=== PATIENT | male | born 1945 | race Caucasian/White ===

== ENCOUNTER 2017-03-10 10:29 | Day surgery (SDC) | payer MEDICARE, OTHER ==
[~2017-03-10 10:29] MED LIST: BUPIVACAINE HCL 0.75% INJ/PF (7.5 MG/1 ML) 10 ML SDV OS PRN; KETOROLAC TROMETHAMINE 0.45% 4 DROP/0.4 ML DROPERETTE OS PRN
[2017-03-10] MEDS ORDERED: LIDOCAINE 1% INJ-PF (10 MG/ML) 30 ML SDV ONE (10:51)
[2017-03-10] MEDS ORDERED: PHENYLEPHRINE/KETOROLAC 1%-0.3% 4 ML VIAL ONE (10:51)
[2017-03-10] MEDS ORDERED: CHONDR SU A NA/HYALUR INTRAOC KIT (SURGICARE) ONE (10:51)
[2017-03-10] MEDS: TETRACAINE HCL 0.5% OPH SOLN 2 ML OS PRN ×3 (11:00→11:39)
[2017-03-10] MEDS: CYCLOPENTOLATE 0.2%/PHENYLEPHRINE 1% OPH SOLN 2 ML OS PRN ×3 (11:01→11:22)
[2017-03-10] MEDS: TROPICAMIDE 1% OPH SOLN 3 ML OS PRN ×3 (11:01→11:22)
[2017-03-10] MEDS: BESIFLOXACIN HCL 0.6% OPH SUSP 5 ML BOTTLE OS PRN ×3 (11:01→12:08)
[2017-03-10] MEDS ORDERED: ALBUTEROL SULFATE 0.083% NEB 2.5 MG/3 ML AMPUL NEB ONE (11:02)
[2017-03-10] MEDS ORDERED: MIDAZOLAM 2 MG/2 ML INJ ONE (11:24)
[2017-03-10] MEDS ORDERED: FENTANYL CITRATE INJ/PF 100 MCG/2 ML AMPUL ONE (11:25)
--- NOTE | 2017-03-11 08:32 | [facility] OPERATIVE REPORT E ---
[facility] Operative Report NAME: AMERICA COOK AGE: 71Y DATE OF SURGERY: 03/10/2017 ROOM: PREOPERATIVE DIAGNOSIS: CATARACT, LEFT EYE. POSTOPERATIVE DIAGNOSIS: CATARACT, LEFT EYE. OPERATION: Cataract extraction with intraocular lens implant of the left eye. SURGEON: RAUL SAMUEL M.D. ANESTHESIA: Topical. PROCEDURE: After obtaining appropriate consent, the patient's left eye was prepped and draped in sterile fashion as well as the surgeon in a sterile manner and cataract surgery was started. First, a paracentesis blade was used to make a small side-port incision. Viscoelastic was used to inflate the anterior chamber. Next, a 2.4 mm incision was made with the paracentesis blade. A continuous capsulorrhexis incision was made using a cystotome and Utrata forceps. Following this, hydrodissection was carried out to make the lens fully loose and mobile, and it was rotated 90 degrees. Following this, a vfqydd-rxc-akcjewx technique was used to phacoemulsify the lens with a CDE of 8.40. The remaining cortex was removed with irrigation/aspiration. Provisc was instilled into the capsular bag to inflate the bag. A SN60WF, 11.0 diopter lens was placed. The remaining viscoelastic material was removed with irrigation/aspiration. Following this, a 10-0 nylon suture was used to close the incision, and it was found to be watertight. Vigamox was instilled in the eye and a protective shield was placed over the eye. The patient returned to the postoperative recovery in stable condition. DICTATING PHYSICIAN: RAUL SAMUEL M.D. [id number] Y#: [id number] ID: [id number] JOB#: [id number] ACCT: [id number] cc:RAUL SAMUEL M.D. >
--- NOTE | 2017-03-11 08:43 | [facility] DISCHARGE SUMMARY E ---
[facility] Discharge Summary NAME: AMERICA COOK AGE: 71Y ADMITTED: 03/10/2017 DISCHARGED: 03/10/2017 HISTORY: This is a 71-year-old male who underwent cataract extraction of the left eye. DIAGNOSIS: Cataract, left eye. HOSPITAL COURSE: He underwent surgery because he had difficulty driving at night secondary to glare from headlights. DISCHARGE INSTRUCTIONS: He should be on a regular diet. No bending at the waist, no heavy lifting. He should use his Besivance, Ilevro, and Durezol at 3 p.m. and 8 p.m. and sleep with a rigid shield, and I will see him for his one day postoperative tomorrow. DICTATING PHYSICIAN: RAUL SAMUEL M.D. [id number] Y#: 2011 [id number] ID: [id number] JOB#: [id number] ACCT: [id number] cc:RAUL SAMUEL M.D. >
== END 2017-03-10 12:52 | disposition home or self-care (01) ==
LOC: SC 10:29
PROVIDERS: ATTEND Internal Medicine
PROC: 08RK3JZ Replacement of Left Lens with Synthetic Substitute, Percutaneous Approach (ICD-10-PCS; principal; 2017-03-10 12:00)
DX: H25.813 Combined forms of age-related cataract, bilateral (principal); H57.03 Miosis; J44.9 Chronic obstructive pulmonary disease, unspecified; I10 Essential (primary) hypertension; E78.00 Pure hypercholesterolemia, unspecified; G47.30 Sleep apnea, unspecified; I49.9 Cardiac arrhythmia, unspecified; Z87.891 Personal history of nicotine dependence; Z85.01 Personal history of malignant neoplasm of esophagus; Z85.118 Personal history of other malignant neoplasm of bronchus and lung; Z99.81 Dependence on supplemental oxygen; Z88.1 Allergy status to other antibiotic agents; Z79.51 Long term (current) use of inhaled steroids; Z79.82 Long term (current) use of aspirin; Z79.899 Other long term (current) drug therapy
CPT/HCPCS: 66984; V2632; J2250; J3490 ×2; A9270 ×2; J3010; C9447; 142

== ENCOUNTER 2017-03-31 11:10 | Day surgery (SDC) | payer MEDICARE, OTHER ==
[~2017-03-31 11:10] MED LIST changes: -BUPIVACAINE HCL 0.75% INJ/PF (7.5 MG/1 ML) 10 ML SDV OS PRN; +CHONDR SU A NA/HYALUR INTRAOC KIT (SURGICARE) ONE; +KETOROLAC TROMETHAMINE 0.45% 4 DROP/0.4 ML DROPERETTE OD PRN; -KETOROLAC TROMETHAMINE 0.45% 4 DROP/0.4 ML DROPERETTE OS PRN; +LIDOCAINE 1% INJ-PF (10 MG/ML) 30 ML SDV ONE; +PHENYLEPHRINE/KETOROLAC 1%-0.3% 4 ML VIAL ONE
[2017-03-31] MEDS: CYCLOPENTOLATE 0.2%/PHENYLEPHRINE 1% OPH SOLN 2 ML OD PRN ×3 (11:33→11:54)
[2017-03-31] MEDS: TETRACAINE HCL 0.5% OPH SOLN 2 ML OD PRN ×3 (11:33→12:10)
[2017-03-31] MEDS: TROPICAMIDE 1% OPH SOLN 3 ML OD PRN ×3 (11:33→11:54)
[2017-03-31] MEDS: BESIFLOXACIN HCL 0.6% OPH SUSP 5 ML BOTTLE OD PRN ×4 (11:34→12:41)
[2017-03-31] MEDS ORDERED: FENTANYL CITRATE INJ/PF 250 MCG/5 ML AMPULE ONE (11:50)
[2017-03-31] MEDS ORDERED: MIDAZOLAM 2 MG/2 ML INJ ONE (11:50)
[2017-03-31] MEDS ORDERED: FENTANYL CITRATE INJ/PF 100 MCG/2 ML AMPUL ONE (11:51)
--- NOTE | 2017-03-31 19:08 | [facility] DISCHARGE SUMMARY E ---
[facility] Discharge Summary NAME: AMERICA COOK AGE: 71Y ADMITTED: 03/31/2017 DISCHARGED: 03/31/2017 HOSPITAL COURSE: This is a 71-year-old male who underwent cataract extraction of the right eye. DIAGNOSIS: CATARACT, RIGHT EYE. He underwent surgery because he was having difficulty reading up close and having an imbalance between both eyes. DISCHARGE INSTRUCTIONS: He is to be on a regular diet. No bending at his waist, no heavy lifting. He should use Besivance, Ilevro, and Durezol at 3 p.m. and 8 p.m. and sleep with a rigid shield. I will see him for his 1 day postoperative tomorrow. DICTATING PHYSICIAN: RAUL SAMUEL M.D. [id number] PHY#: [id number] ID: [id number] JOB#: [id number] ACCT: [id number] cc:RAUL SAMUEL M.D. >
--- NOTE | 2017-03-31 19:08 | [facility] OPERATIVE REPORT E ---
[facility] Operative Report NAME: AMERICA COOK AGE: 71Y DATE OF SURGERY: 03/31/2017 ROOM: PREOPERATIVE DIAGNOSIS: CATARACT, RIGHT EYE. POSTOPERATIVE DIAGNOSIS: CATARACT, RIGHT EYE. OPERATION: Cataract extraction with intraocular lens implant of the right eye. SURGEON: RAUL SAMUEL M.D. ANESTHESIA: Topical. PROCEDURE: After obtaining appropriate consent, the patient's @ eye was prepped and draped in sterile fashion as well as the surgeon in a sterile manner and cataract surgery was started. First a paracentesis blade was used to make a small side-port incision. Viscoelastic was used to inflate the anterior chamber. Next a 2.4 mm incision was made with the paracentesis blade. A continuous capsulorrhexis incision was made using a cystotome and Utrata forceps. Following this hydrodissection was carried out to make the lens fully loose and mobile and it was rotated 90 degrees. Following this, a fegnxp-hae-hoqalkl technique was used to phacoemulsify the lens with a CDE of 6.30. The remaining cortex was removed with irrigation/aspiration. Provisc was instilled into the capsular bag to inflate the bag. A SN60WF, 11.0 diopter lens was placed. The remaining viscoelastic material was removed with irrigation/aspiration. Following this, a 10-0 nylon suture was used to close the incision and it was found to be watertight. Vigamox was instilled in the eye and a protective shield was placed over the eye. The patient returned to the postoperative recovery in stable condition. DICTATING PHYSICIAN: RAUL SAMUEL M.D. [id number] PHY#: [id number] ID: [id number] JOB#: [id number] ACCT: [id number] cc:RAUL SAMUEL M.D. >
== END 2017-03-31 13:28 | disposition home or self-care (01) ==
LOC: SC 11:10
PROVIDERS: ATTEND Internal Medicine
PROC: 08RJ3JZ Replacement of Right Lens with Synthetic Substitute, Percutaneous Approach (ICD-10-PCS; principal; 2017-03-31 12:30)
DX: H25.811 Combined forms of age-related cataract, right eye (principal); H57.03 Miosis; J44.9 Chronic obstructive pulmonary disease, unspecified; I10 Essential (primary) hypertension; K21.9 Gastro-esophageal reflux disease without esophagitis; K44.9 Diaphragmatic hernia without obstruction or gangrene; I49.9 Cardiac arrhythmia, unspecified; G47.30 Sleep apnea, unspecified; Z79.51 Long term (current) use of inhaled steroids; I25.2 Old myocardial infarction; Z79.82 Long term (current) use of aspirin; Z85.118 Personal history of other malignant neoplasm of bronchus and lung
CPT/HCPCS: 66984; V2632; J2250; J3490 ×2; A9270; J3010; C9447; 142

== ENCOUNTER → 2017-05-31 | Outpatient (CLI) | payer MEDICARE, OTHER ==
--- NOTE | 2017-05-31 11:00 | RADIOLOGY REPORT (SQ) ---
EXAM DESCRIPTION: CHEST PA/LATERAL COMPLETED DATE/TIME: 05/31/2017 9:07 am REASON FOR STUDY: MALIG NEOPLASM OF ESOHAGUS,UPPER LOBE,RT BRONCHUS COMPARISON: PET-CT 09/22/2014, 07/13/2015, 04/09/2016 Chest films 03/08/2016, 03/10/2016, 03/29/2016 EXAM PARAMETERS: NUMBER OF VIEWS: two views TECHNIQUE: Digital Frontal and Lateral radiographic views of the chest acquired. RADIATION DOSE: NA LIMITATIONS: none FINDINGS: LUNGS AND PLEURA: No acute infiltrates. Lungs are hyperinflated and hyperlucent from obst ructive disease. No pleural effusion. No pneumothorax. Old calcified granuloma right upper lobe. MEDIASTINUM AND HILAR STRUCTURES: Post thoracotomy and esophageal pull-through. HEART AND VASCULAR STRUCTURES: Heart normal size. No evidence for failure. BONES: No acute findings. HARDWARE: None in the chest. OTHER: No other significant finding. IMPRESSION: Obstructive lung disease. No acute findings TECHNICAL DOCUMENTATION: JOB ID: [id number] 0005 [employer]- All Rights Reserved
== END ==
LOC: OD 08:52
PROVIDERS: ATTEND Internal Medicine Medical Oncology
DX: C15.9 Malignant neoplasm of esophagus, unspecified (principal); C34.11 Malignant neoplasm of upper lobe, right bronchus or lung
CPT/HCPCS: 71046

== ENCOUNTER 2017-07-13 08:47 | Day surgery (SDC) | payer MEDICARE, OTHER ==
[2017-07-13 09:32] LABS: HEMATOCRIT 39.1 % (37.9-51.0); HEMOGLOBIN 13.3 g/dL (13.5-17.0); MEAN CORPUSCULAR HEMOGLOBIN 31.6 pg (27.0-33.4); MEAN CORPUSCULAR VOLUME 93 fl (80-97); PLATELET COUNT 199 10^3/uL (150-450); RED BLOOD COUNT 4.21 10^6/uL (4.35-5.55); RED CELL DISTRIBUTION WIDTH 14.7 % (11.5-14.0); WHITE BLOOD COUNT 7.1 10^3/uL (4.0-10.5)
[2017-07-13 09:37] LABS: INTERNATIONAL RATION (INR) 0.92
[2017-07-13 09:38] LABS: PARTIAL THROMBOPLASTIN TIME 30.6 SEC (23.5-35.8)
[2017-07-13 09:45] LABS: BLOOD UREA NITROGEN 14 mg/dL (7-20)
[2017-07-13] MEDS ORDERED: LIDOCAINE 1% INJ-PF (10 MG/ML) 30 ML SDV ONE (11:29)
[2017-07-13] MEDS ORDERED: MIDAZOLAM 2 MG/2 ML INJ ONE (11:31)
[2017-07-13] MEDS ORDERED: FENTANYL CITRATE INJ/PF 100 MCG/2 ML AMPUL ONE (11:32)
--- NOTE | 2017-07-13 13:39 | RADIOLOGY REPORT (SQ) ---
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 TECHNIQUE: CT guided biopsy of the left retroperitoneal adenopathy performed with conscious sedation . CT Fluoroscopy Time: 4.[address] scanners at this facility use dose modulation, iterative reconstruction, and/or weight based d osing when appropriate to reduce radiation dose to as low as reasonably achievable (ALARA). [facility]: Dose Right [facility]: CareDose [facility]: Dose Right [facility]: Teradose 4D [facility]: [employer] RADIATION DOSE: 72 mGy. FINDINGS: The procedure was discussed with the patient and the patient agreed to the procedure. Prio r to the procedure, a time out was performed to verify the patient's identity and planned procedure. IV sedation was administered and physician direction by the registered nurse using 2 milligrams of Ve rsed and 100 micrograms of fentanyl. Physiologic monitoring was provided before, during, and after se dation. The total sedation time was 40 minutes. Documentation face to face time, the performing proceduralist, spent monitoring the patient: [address] scanning was performed to localize the percutaneous site for the biopsy approach. After sterile skin prep and local lidocaine for skin and deep tissue anesthesia, a coaxial biopsy nee dle was used to obtain multiple cores of tissue from the left retroperitoneal lymph nodes just dorsal to the left renal vein. The biopsy tissue was submitted to the lab in formalin. There were no immed iate complications. Pathology is pending at the time of dictation. IMPRESSION: CT GUIDED BIOPSY OF THE LEFT RETROPERITONEAL ADENOPATHY PERFORMED WITHOUT IMMEDIATE COMP LICATION. PATHOLOGY PENDING. IV CONSCIOUS SEDATION COMMENT: Quality ID 145: Final reports for procedures using fluoroscopy that document radiation exp osure indices, or exposure time and number of fluorographic images (if radiation exposure indices are not available) Patient medication list reviewed: Yes- Quality ID# [id number]:Eligible professional attests to documenting i n the medical record they obtained, updated, or reviewed the patient's current medications.. TECHNICAL DOCUMENTATION: JOB ID: [id number] Quality ID# [id number]: Final reports with documentation of one or more dose reduction techniques (e.g., Aut omated exposure control, adjustment of the mA and/or kV according to patient size, use of iterative r econstruction technique) 2010 [employer]- All Rights Reserved Reading location - IP/workstation name: [email or web address]
--- NOTE | 2017-07-13 13:39 | RADIOLOGY REPORT (SQ) ---
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 TECHNIQUE: CT guided biopsy of the left retroperitoneal adenopathy performed with conscious sedation . CT Fluoroscopy Time: 4.[address] scanners at this facility use dose modulation, iterative reconstruction, and/or weight based d osing when appropriate to reduce radiation dose to as low as reasonably achievable (ALARA). [facility]: Dose Right [facility]: CareDose [facility]: Dose Right [facility]: Teradose 4D [facility]: [employer] RADIATION DOSE: 72 mGy. FINDINGS: The procedure was discussed with the patient and the patient agreed to the procedure. Prio r to the procedure, a time out was performed to verify the patient's identity and planned procedure. IV sedation was administered and physician direction by the registered nurse using 2 milligrams of Ve rsed and 100 micrograms of fentanyl. Physiologic monitoring was provided before, during, and after se dation. The total sedation time was 40 minutes. Documentation face to face time, the performing proceduralist, spent monitoring the patient: [address] scanning was performed to localize the percutaneous site for the biopsy approach. After sterile skin prep and local lidocaine for skin and deep tissue anesthesia, a coaxial biopsy nee dle was used to obtain multiple cores of tissue from the left retroperitoneal lymph nodes just dorsal to the left renal vein. The biopsy tissue was submitted to the lab in formalin. There were no immed iate complications. Pathology is pending at the time of dictation. IMPRESSION: CT GUIDED BIOPSY OF THE LEFT RETROPERITONEAL ADENOPATHY PERFORMED WITHOUT IMMEDIATE COMP LICATION. PATHOLOGY PENDING. IV CONSCIOUS SEDATION COMMENT: Quality ID 145: Final reports for procedures using fluoroscopy that document radiation exp osure indices, or exposure time and number of fluorographic images (if radiation exposure indices are not available) Patient medication list reviewed: Yes- Quality ID# [id number]:Eligible professional attests to documenting i n the medical record they obtained, updated, or reviewed the patient's current medications.. TECHNICAL DOCUMENTATION: JOB ID: [id number] Quality ID# [id number]: Final reports with documentation of one or more dose reduction techniques (e.g., Aut omated exposure control, adjustment of the mA and/or kV according to patient size, use of iterative r econstruction technique) 2010 [employer]- All Rights Reserved Reading location - IP/workstation name: [email or web address]
[2017-07-13 14:25] VITALS: BP 109/68
== END 2017-07-13 14:15 | disposition home or self-care (01) ==
LOC: RAD 08:47
PROVIDERS: ATTEND Internal Medicine Medical Oncology
PROC: 07BD3ZX Excision of Aortic Lymphatic, Percutaneous Approach, Diagnostic (ICD-10-PCS; principal; 2017-07-13)
DX: C77.2 Secondary and unspecified malignant neoplasm of intra-abdominal lymph nodes (principal); C34.11 Malignant neoplasm of upper lobe, right bronchus or lung; Z79.01 Long term (current) use of anticoagulants
CPT/HCPCS: 36415; 84520; 82565; 85027; 85610; 85730; 88342 ×2; 88341 ×2; 88305 ×2; 77012; 38505; J2250; J3010; J3490

== ENCOUNTER 2017-09-23 21:49 | Inpatient (IN) | payer MEDICARE, OTHER ==
[2017-09-23] MEDS ORDERED: IPRATROPIUM/ALBUTEROL 0.5-2.5 MG/3 ML AMPUL NEB ONE (22:36)
[2017-09-23] MEDS ORDERED: LORAZEPAM INJ 2 MG/1 ML VIAL IV ONE (22:36)
[2017-09-23] MEDS ORDERED: METHYLPREDNISOLONE INJ 125 MG/2 ML SDV IV ONE (22:39)
--- NOTE | 2017-09-23 22:39 | ER Document Report ---
ED General - General Chief Complaint: Shortness Of Breath Stated Complaint: DIFFICULTY BREATHING Time Seen by Provider: 09/23/17 22:22 Cannot obtain history due to: Unstable vital signs Notes: Patient is a 71 year old with medical history as recorded including active chemotherapy treatment for esophageal and lung cancer as well as COPD with a baseline oxygen dependence of 2 L of nasal cannula who presents in respiratory distress. He and his family report that for the past 12 hours he has had progressively worsening shortness of breath and difficulty taking a deep breath. Patient denies a history of similar symptoms in the past. He reports he tried albuterol inhalers at the home with no improvement. Nothing worsens his symptoms. He states that they came on relatively abruptly and have gotten progressively worse since that time. He denies any associated chest pain, nausea, vomiting, hemoptysis or fever. History is otherwise limited secondary to the patient's respiratory distress TRAVEL OUTSIDE OF THE [place] IN LAST 30 DAYS: No - Related Data Allergies/Adverse Reactions: bee venom protein (honey bee) Allergy (Verified 07/13/17 09:10) tetracycline [Tetracycline] Allergy (Verified 07/13/17 09:10) resp distress Past Medical History - General Information source: Patient, Relative - Social History Smoking Status: Former Smoker Frequency of alcohol use: None Drug Abuse: None Lives with: Family Family History: Reviewed & Not Pertinent - Past Medical History Cardiac Medical History: Reports: Hx Heart Attack - 2016, Hx Hypercholesterolemia - meds x 8 years, Hx Hypertension Denies: Hx Atrial Fibrillation, Hx Congestive Heart Failure, Hx Coronary Artery Disease, Hx Peripheral Vascular Disease, Hx Pulmonary Embolism, Hx Heart Murmur Pulmonary Medical History: Reports: Hx Asthma, Hx Bronchitis - chronic, Hx COPD , Hx Pneumonia - hospitalized after 2nd episode 2010, Hx Sleep Apnea - CPAP Qhs Denies: Hx Respiratory Failure, Hx Tuberculosis Neurological Medical History: Denies: Hx Cerebrovascular Accident, Hx Seizures Renal/ Medical History: Denies: Hx Benign Prostatic Hyperplasia, Hx End Stage Renal Disease, Hx Kidney Stones, Hx Peritoneal Dialysis Malignancy Medical History: Denies Hx Leukemia, Denies Hx Lung Cancer GI Medical History: Reports: Hx Gastroesophageal Reflux Disease - Nexium daily, Hx Hiatal Hernia. Denies: Hx Crohn's Disease, Hx Hepatitis, Hx Irritable Bowel , Hx Liver Failure, Hx Pancreatitis, Hx Ulcer Musculoskeltal Medical History: Reports Hx Arthritis, Denies Hx Fibromyalgia, Denies Hx Muscular Dystrophy Traumatic Medical History: Reports: Hx Fractures - RT tibia 2002, no surgical intervention Infectious Medical History: Denies: Hx Hepatitis, Hx HIV Past Surgical History: Reports: Hx Herniorrhaphy - [place] fundiplication? 1986. Denies: Hx Appendectomy, Hx Bowel Surgery, Hx Cholecystectomy, Hx Colostomy, Hx Coronary Artery Bypass Graft, Hx Gastric Bypass Surgery, Hx Open Heart Surgery, Hx Pacemaker, Hx Tonsillectomy - Immunizations Hx Pneumococcal Vaccination: 05/16/10 Review of Systems - Review of Systems Notes: Constitutional: Negative for fever. HENT: Negative for sore throat. Eyes: Negative for visual changes. Cardiovascular: Negative for chest pain. Respiratory: Positive for shortness of breath. Gastrointestinal: Negative for abdominal pain, vomiting or diarrhea. Genitourinary: Negative for dysuria. Musculoskeletal: Negative for back pain. Skin: Negative for rash. Neurological: Negative for headaches, weakness or numbness. 10 point ROS negative except as marked above and in HPI. Physical Exam - Vital signs Vitals: Temp Pulse Resp BP Pulse Ox 98.7 F 107 H 26 H 113/66 97 09/23/17 21:57 09/23/17 21:57 09/23/17 21:57 09/23/17 21:57 09/23/17 21:57 Interpretation: Tachycardic, Tachypneic Notes: PHYSICAL EXAMINATION: GENERAL: Appears uncomfortable, moderate respiratory distress HEAD: Atraumatic, normocephalic. EYES: Pupils equal round and reactive to light, extraocular movements intact, sclera anicteric, conjunctiva are normal. ENT: nares patent, oropharynx clear without exudates. Moderately dry mucous membranes. NECK: Normal range of motion, supple without lymphadenopathy LUNGS: Tachypneic with a respiratory rate of 36 breaths per minute. Poor air movement throughout but no overt wheezes, scattered rales. HEART: Regular tachycardia without murmurs ABDOMEN: Soft, nontender, normoactive bowel sounds. No guarding, no rebound. No masses appreciated. EXTREMITIES: Normal range of motion, no pitting or edema. No cyanosis. NEUROLOGICAL: No focal neurological deficits. Moves all extremities spontaneously and on command. PSYCH: Normal mood, normal affect. SKIN: Warm, Dry, normal turgor, no rashes or lesions noted. Course - Re-evaluation Re-evalutation: 09/23/17 22:37 Patient presents in acute respiratory distress, states that is been ongoing for the past 12 hours. He is breathing 32 times per minute the time of my assessment although is saturating 98% on 2 L by nasal cannula which he uses at baseline. He has globally diminished air movement in all lung morris although I do not appreciate any wheezes. There are notable rales on exam. Patient has difficulty speaking in complete sentences. He denies a history of such severe symptoms in the past and his notes that albuterol inhalers at home did nothing to treat his symptoms. I am skeptical that this is an obstructive lung process given the absence of wheezing on exam and his clinical history. Additional diagnostic considerations include a spontaneous pneumothorax given his history of lung malignancy and a partial right lobectomy per the 's report, a large pleural effusion, or possibly an acute pulmonary embolus. Will obtain a stat portable chest x-ray, obtain labs, and proceed with a CTA of the chest thereafter. Will proceed directly to CT as opposed to d-dimer as the patient is extremely high risk given his tachycardia, active chemotherapy for malignancy status, and severe dyspnea on exam. His well score is 6. - Vital Signs Vital signs: Temp Pulse Resp BP Pulse Ox 98.7 F 107 H 29 H 120/77 100 09/23/17 21:57 09/23/17 21:57 09/24/17 00:34 09/24/17 00:01 09/24/17 00:34 - Laboratory Result Diagrams: 09/23/17 22:32 09/23/17 22:32 Laboratory results interpreted by me: 09/23/17 09/23/17 22:32 22:32 WBC 52.2 H* RBC 3.99 L Hgb 12.3 L Hct 36.5 L RDW 16.1 H Seg Neuts % (Manual) 97 H Lymphocytes % (Manual) 2 L Monocytes % (Manual) 1 L Abs Neuts (Manual) 50.6 H BUN 27 H Glucose 131 H - Diagnostic Test Radiology reviewed: Reports reviewed - EKG Interpretation by Me Additional EKG results interpreted by me: 09/24/17 03:06 Sinus rhythm. Rate 97. No ST elevations or depressions. PVCs. QTC 463. Critical Care Note - Critical Care Note Total time excluding time spent on procedures (mins): 35 Comments: Critical care time spent obtaining history from patient or surrogate, discussions with consultants, development of treatment plan with patient or surrogate, evaluation of patient's response to treatment, examination of patient , ordering and performing treatments and interventions, ordering and review of laboratory studies, re-evaluation of patient's condition, ordering and review of radiographic studies and review of old charts Discharge - Discharge Clinical Impression: Shortness of breath, Respiratory distress Leukocytosis Qualifiers: Leukocytosis type: unspecified Qualified Code(s): D72.829 - Elevated white blood cell count, unspecified Condition: Fair Disposition: ADMITTED INPATIENT Admitting Provider: Hospitalist Unit Admitted: Telemetry
[2017-09-23 22:47] LABS: VENOUS BLOOD BASE EXCESS 0.2 mmol/L; VENOUS BLOOD HCO3 24.5 mmol/L (20-32); VENOUS BLOOD PCO2 38.8 mmHg (35-63); VENOUS BLOOD PH 7.42 (7.30-7.42)
[2017-09-23 22:59] LABS: HEMATOCRIT 36.5 % (37.9-51.0); HEMOGLOBIN 12.3 g/dL (13.5-17.0); MEAN CORPUSCULAR HEMOGLOBIN 30.9 pg (27.0-33.4); MEAN CORPUSCULAR HGB CONC 33.8 g/dL (32.0-36.0); MEAN CORPUSCULAR VOLUME 92 fl (80-97); PLATELET COUNT 296 10^3/uL (150-450); RED BLOOD COUNT 3.99 10^6/uL (4.35-5.55); RED CELL DISTRIBUTION WIDTH 16.1 % (11.5-14.0)
[2017-09-23 23:05] LABS: ANION GAP 12 (5-19); BLOOD UREA NITROGEN 27 mg/dL (7-20); CALCIUM 9.2 mg/dL (8.4-10.2); CARBON DIOXIDE 27 mmol/L (22-30); CHLORIDE 101 mmol/L (98-107); GLUCOSE 131 mg/dL (75-110); POTASSIUM 4.4 mmol/L (3.6-5.0); SODIUM 140.1 mmol/L (137-145); WHITE BLOOD COUNT 52.2 10^3/uL (4.0-10.5)
[2017-09-23] MEDS ORDERED: PIPERACILLIN/TAZOBACTAM 3.375 GM VIAL IV ONE (23:07)
[2017-09-23] MEDS ORDERED: NORMAL SALINE 1000 ML 1,000 ML IV ONE (23:07)
[2017-09-23 23:14] LABS: NT PRO BNP 129 pg/mL (5-900)
[2017-09-23 23:15] LABS: ABSOLUTE MONOCYTES # (MANUAL) 0.5 10^3/uL (0.1-1.4); ABSOLUTE NEUTROPHILS# (MANUAL) 50.6 10^3/uL (1.7-8.2); BASOPHILS % (MANUAL) 0 % (0-2); EOSINOPHILS % (MANUAL) 0 % (0-6); LYMPHOCYTES % (MANUAL) 2 % (13-45); MONOCYTES % (MANUAL) 1 % (3-13); SEGMENTED NEUTROPHILS % (MAN) 97 % (42-78); TOTAL CELLS COUNTED 100
[2017-09-23 23:17] LABS: ANISOCYTOSIS 1+; PLATELET COMMENT ADEQUATE; TOXIC GRANULATION SLIGHT
[2017-09-23 23:19] LABS: TROPONIN I < 0.012 ng/mL
--- NOTE | 2017-09-24 00:54 | RADIOLOGY REPORT (SQ) ---
EXAM DESCRIPTION: CT CHEST ANGIOGRAPHY WITHOUT THEN WITH IV CONTRAST CLINICAL HISTORY: 71 years Male, sob, hx cancer, tachycardia Comparison: CT retroperitoneum, report only, 07/05/2017. Technique: IV contrast. Coronal and sagittal reformat. 3d reconstruction. This exam was performed according to our departmental dose-optimization program, which includes automated exposure control, adjustment of the mA and/or kV according to patient size and/or use of iterative reconstruction technique.[facility]: Dose Right [facility]: CareDose [facility]: Dose Right [facility]: Teradose 4D [facility]: Smart [employer] LIMITATIONS: None. Findings: No pulmonary embolus. No right ventricular strain. Ossified granuloma right upper lobe, severe centrilobular emphysema, small scar of the lateral right mid hemithorax, esophageal transposition, multilevel mild-moderate anterior thoracic vertebral compression deformities. Moderate exaggerated kyphotic curvature. Moderate mediastinal lymphadenopathy. Small left basilar atelectasis or scar. Moderate lymphadenopathy of the upper central abdomen measuring up to 1.8 cm each consistent with prior CT report, 07/05/2017. Partially imaged aortic graft. Cholecystectomy clips.Inferior neck, axillae, airway, heart, vasculature, upper abdomen, and musculoskeleton appear otherwise unremarkable. IMPRESSION: 1. Moderate mediastinal and upper abdominal lymphadenopathy. 2. No acute cardiopulmonary findings. No pulmonary embolus. Prior surgery.
[2017-09-24] MEDS ORDERED: IPRATROPIUM/ALBUTEROL 0.5-2.5 MG/3 ML AMPUL NEB PRN (01:24)
[2017-09-24] MEDS ORDERED: MAG HYDROX/AL HYDROX/SIMETH SUSP 30 ML UDCUP PO PRN (01:24)
[2017-09-24] MEDS ORDERED: ACETAMINOPHEN 325 MG TABLET PO PRN (01:24)
[2017-09-24] MEDS ORDERED: CHLORPHENIRAMINE MALEATE 4 MG TABLET PO ONE (01:24)
[2017-09-24] MEDS ORDERED: KETOROLAC TROMETHAMINE INJ/PF 30 MG/1 ML SDV IV PRN (01:24)
[2017-09-24] MEDS ORDERED: HYDROCODONE BIT/HOMATROPINE SYRUP 5 ML UDCUP PO PRN (01:24)
[2017-09-24] MEDS ORDERED: LACTULOSE SYRUP 20 GM/30 ML UDCUP PO ONE (01:24)
[2017-09-24] MEDS ORDERED: HYDRALAZINE HCL INJ/PF 20 MG/1 ML SDV IV PRN (01:24)
[2017-09-24] MEDS ORDERED: ONDANSETRON HCL INJ/PF 4 MG/2 ML SDV IV PRN (01:24)
[2017-09-24] MEDS ORDERED: BESIFLOXACIN HCL 0.6% OPH SUSP 5 ML BOTTLE OP SCH (01:30)
[2017-09-24] MEDS ORDERED: NORMAL SALINE 1000 ML 1,000 ML IV PRN (01:30)
[2017-09-24] MEDS ORDERED: (PENDING PHARMACY ID) (Difluprednate [Durezol] 1 DROP) OP SCH (01:30)
--- NOTE | 2017-09-24 02:00 | RADIOLOGY REPORT (SQ) ---
EXAM DESCRIPTION: XR CHEST 1 VIEW CLINICAL HISTORY: 71 years Male, sob, hx cancer, tachycardia COMPARISON: 03.29.16 NUMBER OF VIEWS/TECHNIQUE: 1/AP FINDINGS: Emphysematous hyperinflation, small chronic right lateral mid hemithoracic scar, calcified granuloma the right upper hemithorax, right subclavian central line tip at the SVC, right medial hemithoracic opacity consistent with history of esophagectomy and gastric pull-through. Stable. IMPRESSION: No acute cardiopulmonary findings.
[2017-09-24 02:29] LABS: CREATINE KINASE MB 0.57 ng/mL (<4.55)
[2017-09-24 02:30] LABS: TROPONIN I < 0.012 ng/mL
[2017-09-24] MEDS: IPRATROPIUM/ALBUTEROL 0.5-2.5 MG/3 ML AMPUL NEB SCH ×4 (02:49→19:59)
[2017-09-24] MEDS ORDERED: PIPERACILLIN/TAZOBACTAM 4.5 GM VIAL IV ONE (03:44)
[2017-09-24] MEDS ORDERED: CHLORPHENIRAMINE MALEATE 4 MG TABLET ONE (03:44)
[2017-09-24] MEDS: PIPERACILLIN SODIUM/TAZOBACTAM 4.5 GM in NORMAL SALINE 100 ML IV SCH ×3 (05:28→18:03)
[2017-09-24] MEDS: HEPARIN SOD (PORCINE) 5,000 UNIT/ML 1 ML SYRINGE SUBCUT SCH ×3 (05:30→21:46)
--- NOTE | 2017-09-24 05:42 | RADIOLOGY REPORT (SQ) ---
EXAM DESCRIPTION: XR ABDOMEN 2 VIEWS SUPINE ERECT CLINICAL HISTORY: 71 years Male, rule out obstruction COMPARISON: CT, 2.28.18 NUMBER OF VIEWS/TECHNIQUE: 3 LIMITATIONS: None. FINDINGS: Intestinal gas pattern is within normal limits. No suspicious calcification. Grossly intact skeletal structures. No acute cardiopulmonary findings. Right upper abdominal clips. Aortobiiliac graft. Residual contrast at the urinary bladder. IMPRESSION: No acute findings.
--- NOTE | 2017-09-24 05:55 | PDOC H&P ---
History of Present Illness Admission Date/PCP: 09/24/17 01:32 NING CRUZ MD Patient complains of: Shortness of breath History of Present Illness: AMERICA COOK is a 71 year old male with history of active lung and esophageal cancer with metastases on chemotherapy, COPD with chronic bronchitis and home oxygen dependence. Patient presents with 12 hours of shortness of breath and tachypnea. Denies anxiety, headache, rhinorrhea, sore throat or acid reflux. In the emergency room he is found to have no fever, leukocytosis of 52,000, respiratory rate of 30-40 and oxygen saturations at baseline of 99% on 2 L. CTA of the chest is negative for pulmonary emboli, BNP in normal range. He is referred to the hospitalist for admission. He denies previous episode. He is unaware of his chemotherapeutic regimen. Past Medical History Cardiac Medical History: Reports: Myocardial Infarction - 2016, Hyperlipidema - meds x 8 years, Hypertension Denies: Atrial Fibrillation, Congestive Heart Failure, Coronary Artery Disease, Peripheral Vascular Disease, Pulmonary Embolism, Heart Murmur Pulmonary Medical History: Reports: Asthma, Bronchitis - chronic, Chronic Obstructive Pulmonary Disease (COPD), Pneumonia - hospitalized after 2nd episode 2010, Sleep Apnea - CPAP Qhs Denies: Respiratory Failure, Tuberculosis Neurological Medical History: Denies: Seizures Renal/ Medical History: Denies: End Stage Renal Disease Malignancy Medical History: Denies: Leukemia, Lung Cancer GI Medical History: Reports: Gastroesophageal Reflux Disease - Nexium daily, Hiatal Hernia Denies: Crohn's Disease, Hepatitis Musculoskeltal Medical History: Reports: Arthritis Denies: Fibromyalgia Psychiatric Medical History: Denies: Depression Hematology: Denies: Anemia, Hemophilia, Sickle Cell Disease Infectious Medical History: Denies: HIV Past Surgical History Past Surgical History: Reports: Herniorrhaphy - [place] fundiplication? 1986 Denies: Appendectomy, Cholecystectomy, Colostomy, Coronary Artery Bypass Graft, Gastric Bypass Surgery, Pacemaker, Tonsillectomy Social History Information Source: Patient, Emergency Med Personnel Lives with: Family Smoking Status: Former Smoker Frequency of Alcohol Use: None Hx Recreational Drug Use: No Hx Prescription Drug Abuse: No - Advance Directive Resuscitation Status: Full Code Family History Family History: COPD Parental Family History Reviewed: Yes Children Family History Reviewed: Yes Sibling(s) Family History Reviewed.: Yes Medication/Allergy Home Medications: Albuterol Sulfate [Proair HFA] 2 inh IH PRN PRN 11/14/12 Aspirin 81 mg PO QAM 11/14/12 Budesonide/Formoterol Fumarate [Symbicort HFA 160-4.5 mcg Inhaler 6 gm] 2 puff IH BID 11/14/12 Esomeprazole Magnesium [Nexium] 40 mg PO QHS 11/14/12 Tiotropium [place] [Spiriva Handihaler 18 mcg/dose (30 Dose)] 1 cap IH QAM 11/14 Amiodarone HCl [Cordarone 200 mg Tablet] 200 mg PO DAILY 03/07/17 Fluticasone/Salmeterol [Advair 250-50 Diskus 14 Dose/Diskus] 1 inh IH Q12H 03/07 Venlafaxine HCl [Effexor 25 mg Tablet] 25 mg PO DAILY 03/07/17 Besifloxacin HCl [Besivance Drops] 1 drop OP .3PM AND 8PM TODAY 03/10/17 Difluprednate [Durezol] 1 drop OP .3PM AND 8PM TODAY 03/10/17 Nepafenac [Ilevro] 1 drop OP .3PM AND 8PM TODAY 03/10/17 Allergies/Adverse Reactions: bee venom protein (honey bee) Allergy (Verified 07/13/17 09:10) tetracycline [Tetracycline] Allergy (Verified 07/13/17 09:10) resp distress Review of Systems Constitutional: PRESENT: as per HPI, anorexia, fatigue, weight loss. ABSENT: chills, fever(s), headache(s), weight gain Eyes: ABSENT: visual disturbances Ears: ABSENT: hearing changes Cardiovascular: ABSENT: chest pain, dyspnea on exertion, edema, orthropnea, palpitations Respiratory: ABSENT: cough, hemoptysis Gastrointestinal: ABSENT: abdominal pain, constipation, diarrhea, hematemesis, hematochezia, nausea, vomiting Genitourinary: ABSENT: dysuria, hematuria Musculoskeletal: ABSENT: joint swelling Integumentary: ABSENT: rash, wounds Neurological: ABSENT: abnormal gait, abnormal speech, confusion, dizziness, focal weakness, syncope Psychiatric: ABSENT: anxiety, depression, homidical ideation, suicidal ideation Endocrine: ABSENT: cold intolerance, heat intolerance, polydipsia, polyuria Hematologic/Lymphatic: ABSENT: easy bleeding, easy bruising Physical Exam Vital Signs: Temp Pulse Resp BP Pulse Ox 98.2 F 84 57 H 117/74 98 09/24/17 02:55 09/24/17 03:01 09/24/17 03:14 09/24/17 02:55 09/24/17 03:35 Intake & Output 09/22/17 09/23/17 09/24/17 11:59 11:59 11:59 Intake Total 900 Balance 900 Weight 75.5 kg General appearance: PRESENT: cooperative, mild distress, thin Head exam: PRESENT: atraumatic, normocephalic Eye exam: PRESENT: conjunctiva pink, EOMI, PERRLA. ABSENT: scleral icterus Ear exam: PRESENT: normal external ear exam Mouth exam: PRESENT: moist, tongue midline Neck exam: ABSENT: carotid bruit, JVD, lymphadenopathy, thyromegaly Respiratory exam: PRESENT: accessory muscle use, crackles, prolonged expiratory phas, retraction, symmetrical, tachypnea. ABSENT: rales, rhonchi, stridor, wheezes Cardiovascular exam: PRESENT: RRR. ABSENT: diastolic murmur, rubs, systolic murmur Pulses: PRESENT: normal dorsalis pedis pul Vascular exam: PRESENT: normal capillary refill GI/Abdominal exam: PRESENT: normal bowel sounds, soft. ABSENT: distended, guarding, mass, organolmegaly, rebound, tenderness Rectal exam: PRESENT: deferred Extremities exam: PRESENT: full ROM. ABSENT: calf tenderness, clubbing, pedal edema Neurological exam: PRESENT: alert, awake, oriented to person, oriented to place , oriented to time, oriented to situation, CN II-XII grossly intact. ABSENT: motor sensory deficit Psychiatric exam: PRESENT: appropriate affect, normal mood. ABSENT: homicidal ideation, suicidal ideation Skin exam: PRESENT: dry, intact, warm. ABSENT: cyanosis, rash Results Laboratory Results: 09/24/17 09/24/17 01:50 01:50 Magnesium 2.2 TSH 1.82 09/24/17 09/24/17 01:50 01:50 Creatine Kinase 29 L CK-MB (CK-2) 0.57 Troponin I < 0.012 Impressions: Chest X-Ray 09/23/17 22:35 IMPRESSION: No acute cardiopulmonary findings. Chest/Abdomen CTA 09/23/17 22:35 IMPRESSION: 1. Moderate mediastinal and upper abdominal lymphadenopathy. 2. No acute cardiopulmonary findings. No pulmonary embolus. Prior surgery. Abdomen X-Ray 09/24/17 00:00 IMPRESSION: No acute findings. Assessment & Plan - Diagnosis (1) Leukocytosis Qualifiers: Leukocytosis type: unspecified Qualified Code(s): D72.829 - Elevated white blood cell count, unspecified Is this a current diagnosis for this admission?: Yes Plan: Unclear cause possibly secondary to chemotherapeutic agent versus acute infection. Empiric antibiotics initiated for pneumonia. Follow-up blood culture and CBC, obtain records from oncology. (2) Respiratory distress Is this a current diagnosis for this admission?: Yes Plan: Tachypnea without hypoxia, empiric treatment for primary pulmonary pathology however given history of lung and esophageal cancer concern for metastases will CT head. (3) Shortness of breath Is this a current diagnosis for this admission?: Yes Plan: Symptomatic management. - Time Time Spent: 30 to 50 Minutes - Inpatient Certification Medical Necessity: Need Close Monitoring Due to Risk of Patient Decompensation
[2017-09-24 06:29] LABS: HEMATOCRIT 33.8 % (37.9-51.0); HEMOGLOBIN 11.4 g/dL (13.5-17.0); MEAN CORPUSCULAR HEMOGLOBIN 30.9 pg (27.0-33.4); MEAN CORPUSCULAR HGB CONC 33.7 g/dL (32.0-36.0); MEAN CORPUSCULAR VOLUME 92 fl (80-97); PLATELET COUNT 257 10^3/uL (150-450); RED BLOOD COUNT 3.68 10^6/uL (4.35-5.55); RED CELL DISTRIBUTION WIDTH 15.6 % (11.5-14.0)
[2017-09-24 06:37] LABS: ANION GAP 16 (5-19); BLOOD UREA NITROGEN 25 mg/dL (7-20); CALCIUM 8.5 mg/dL (8.4-10.2); CARBON DIOXIDE 26 mmol/L (22-30); CHLORIDE 102 mmol/L (98-107); GLUCOSE 150 mg/dL (75-110); POTASSIUM 4.5 mmol/L (3.6-5.0); SODIUM 143.7 mmol/L (137-145)
[2017-09-24 07:24] LABS: ABSOLUTE LYMPHOCYTES# (MANUAL) 1.1 10^3/uL (0.5-4.7); ABSOLUTE MONOCYTES # (MANUAL) 0.6 10^3/uL (0.1-1.4); ABSOLUTE NEUTROPHILS# (MANUAL) 55.3 10^3/uL (1.7-8.2); BASOPHILS % (MANUAL) 0 % (0-2); EOSINOPHILS % (MANUAL) 0 % (0-6); LYMPHOCYTES % (MANUAL) 2 % (13-45); MONOCYTES % (MANUAL) 1 % (3-13); SEGMENTED NEUTROPHILS % (MAN) 97 % (42-78); TOTAL CELLS COUNTED 100
[2017-09-24 07:26] LABS: ANISOCYTOSIS SLIGHT; OVALOCYTES SLIGHT; PLATELET COMMENT ADEQUATE; POIKILOCYTOSIS SLIGHT
--- NOTE | 2017-09-24 08:46 | EKG REPORT ---
SEVERITY:- ABNORMAL ECG - SINUS RHYTHM LOW VOLTAGE IN FRONTAL LEADS ST ELEVATION NONSPECIFIC : Confirmed by: Eitan Moore MD 24-Sep-2017 08:45:31
[2017-09-24 08:58] LABS: CREATINE KINASE MB 0.56 ng/mL (<4.55)
[2017-09-24 09:03] LABS: TROPONIN I < 0.012 ng/mL
[2017-09-24] MEDS ORDERED: ALPRAZOLAM 0.5 MG TABLET PO PRN (09:29)
[2017-09-24] MEDS: PREDNISONE 20 MG TABLET PO SCH ×2 (10:54→18:03)
[2017-09-24] MEDS: ASPIRIN 81 MG TABLET, CHEWABLE PO SCH (10:54)
[2017-09-24] MEDS: AZITHROMYCIN 500 MG in DEXTROSE 5%-WATER 250 ML IV SCH (10:55)
[2017-09-24] MEDS: AMIODARONE HCL 200 MG TABLET PO SCH (10:55)
[2017-09-24] MEDS: VENLAFAXINE HCL 25 MG TABLET PO SCH (10:56)
[2017-09-24] MEDS: DOCUSATE SODIUM 100 MG CAPSULE PO SCH ×2 (10:57→17:46)
[2017-09-24] MEDS: FLUTICASONE NASAL SPRAY 50 MCG/SPRY 120 SPRAY/16 GM NASL SCH ×2 (10:57→21:46)
[2017-09-24 15:13] LABS: TROPONIN I < 0.012 ng/mL
--- NOTE | 2017-09-24 15:44 | Progress Note ---
Provider Note Provider Note: Spoke with Dr. Christina this am. She is aware of the patient has given me her phone number to call her if any questions. She did relay that patient received Neupogen after his chemo treatment hands his leukocytosis. He was initially diagnosed about 2 years ago and was treated with a carboplatin-based regimen but patient has had a recurrence and is currently receiving FOLFOX. She did also confirm that patient gets pretty anxious which leads to respiratory distress We will continue with NIPPV and other supportive management. He would be a good idea to cost with patient's spouse regarding his CODE STATUS
[2017-09-24] MEDS: LANSOPRAZOLE 30 MG TAB.RAP.DR PO SCH (21:46)
[2017-09-25] MEDS: PIPERACILLIN SODIUM/TAZOBACTAM 4.5 GM in NORMAL SALINE 100 ML IV SCH ×4 (00:04→17:40)
[2017-09-25] MEDS: IPRATROPIUM/ALBUTEROL 0.5-2.5 MG/3 ML AMPUL NEB SCH ×4 (02:16→19:40)
--- NOTE | 2017-09-25 02:37 | RADIOLOGY REPORT (SQ) ---
EXAM DESCRIPTION: CT HEAD WITH IV CONTRAST CLINICAL HISTORY: 71 years Male, ca c mets COMPARISON: PET/CT, 04/09/2016. TECHNIQUE: Before and after IV contrast. Coronal and sagittal reformat. This exam was performed according to our departmental dose-optimization program, which includes automated exposure control, adjustment of the mA and/or kV according to patient size and/or use of iterative reconstruction technique. FINDINGS: No hemorrhage or infarct. No mass, mass effect, or midline shift. Atherosclerosis. Mild white matter microangiopathy pattern, left more than right. Moderate left sphenoid mucosal thickening and fluid. Brain and extra-axial structures appear otherwise intact. No enhancement abnormality. IMPRESSION: No acute or suspicious findings.
[2017-09-25 06:19] LABS: HEMATOCRIT 27.4 % (37.9-51.0); MEAN CORPUSCULAR HEMOGLOBIN 31.1 pg (27.0-33.4); MEAN CORPUSCULAR VOLUME 92 fl (80-97); PLATELET COUNT 168 10^3/uL (150-450); RED BLOOD COUNT 2.99 10^6/uL (4.35-5.55); RED CELL DISTRIBUTION WIDTH 15.8 % (11.5-14.0)
[2017-09-25 06:23] LABS: ANION GAP 8 (5-19); BLOOD UREA NITROGEN 19 mg/dL (7-20); CALCIUM 8.1 mg/dL (8.4-10.2); CARBON DIOXIDE 28 mmol/L (22-30); CHLORIDE 107 mmol/L (98-107); GLUCOSE 115 mg/dL (75-110); SODIUM 142.7 mmol/L (137-145)
[2017-09-25] MEDS: HEPARIN SOD (PORCINE) 5,000 UNIT/ML 1 ML SYRINGE SUBCUT SCH ×3 (06:36→21:17)
[2017-09-25 06:46] LABS: ABSOLUTE LYMPHOCYTES# (MANUAL) 1.7 10^3/uL (0.5-4.7); ABSOLUTE NEUTROPHILS# (MANUAL) 55.3 10^3/uL (1.7-8.2); BAND NEUTROPHILS % (MANUAL) 5 % (3-5); BASOPHILS % (MANUAL) 0 % (0-2); EOSINOPHILS % (MANUAL) 0 % (0-6); LYMPHOCYTES % (MANUAL) 3 % (13-45); MONOCYTES % (MANUAL) 0 % (3-13); SEGMENTED NEUTROPHILS % (MAN) 92 % (42-78); TOTAL CELLS COUNTED 100
[2017-09-25 06:48] LABS: TOXIC GRANULATION SLIGHT
[2017-09-25 06:49] LABS: ANISOCYTOSIS SLIGHT; OVALOCYTES SLIGHT; PLATELET COMMENT ADEQUATE; POIKILOCYTOSIS SLIGHT
[2017-09-25 06:50] LABS: HEMOGLOBIN 9.3 g/dL (13.5-17.0)
[2017-09-25] MEDS: ASPIRIN 81 MG TABLET, CHEWABLE PO SCH (07:39)
[2017-09-25] MEDS: AZITHROMYCIN 500 MG in DEXTROSE 5%-WATER 250 ML IV SCH (09:39)
[2017-09-25] MEDS: FLUTICASONE NASAL SPRAY 50 MCG/SPRY 120 SPRAY/16 GM NASL SCH ×2 (09:44→21:18)
[2017-09-25] MEDS: PREDNISONE 20 MG TABLET PO SCH ×2 (09:44→17:39)
[2017-09-25] MEDS: AMIODARONE HCL 200 MG TABLET PO SCH (09:45)
[2017-09-25] MEDS: VENLAFAXINE HCL 25 MG TABLET PO SCH (09:45)
[2017-09-25] MEDS: DOCUSATE SODIUM 100 MG CAPSULE PO SCH ×2 (09:46→17:30)
--- NOTE | 2017-09-25 17:01 | PDOC PROGRESS REPORT ---
Subjective Progress Note for:: 09/25/17 Subjective:: JASPAL COOK is a 71 year old male with history of active lung and esophageal cancer with metastases on chemotherapy, COPD with chronic bronchitis and home oxygen dependence. Patient presents with 12 hours of shortness of breath and tachypnea. Denies anxiety, headache, rhinorrhea, sore throat or acid reflux. In the emergency room he is found to have no fever, leukocytosis of 52,000, respiratory rate of 30-40 and oxygen saturations at baseline of 99% on 2 L. CTA of the chest is negative for pulmonary emboli, BNP in normal range. He is referred to the hospitalist for admission. He denies previous episode. He is unaware of his chemotherapeutic regimen. Spoke with Dr. Christina. She did relay that patient received Neupogen after his chemo treatment hence his leukocytosis. He was initially diagnosed about 2 years ago and was treated with a carboplatin-based regimen but patient has had a recurrence and is currently receiving FOLFOX. She did also confirm that patient gets pretty anxious which leads to respiratory distress We will continue with NIPPV and other supportive management. Palliative care consult has also been ordered Reason For Visit: ACUTE BRONCHITIS,SOB,LUNG CA W METS Physical Exam Vital Signs: Temp Pulse Resp BP Pulse Ox 97.7 F 76 21 H 106/63 99 09/25/17 16:00 09/25/17 16:00 09/25/17 16:00 09/25/17 16:00 09/25/17 16:00 Intake & Output 09/24/17 09/25/17 09/26/17 06:59 06:59 06:59 Intake Total 900 3017 Output Total 1625 Balance 900 1392 Weight 75.5 kg 78.1 kg General appearance: PRESENT: mild distress, thin, other - BIPAP mask Head exam: PRESENT: atraumatic Neck exam: ABSENT: carotid bruit, JVD, lymphadenopathy, thyromegaly Respiratory exam: PRESENT: accessory muscle use, retraction, rhonchi, tachypnea. ABSENT: unlabored Cardiovascular exam: PRESENT: RRR. ABSENT: diastolic murmur, rubs, systolic murmur Pulses: PRESENT: normal dorsalis pedis pul GI/Abdominal exam: PRESENT: normal bowel sounds, soft. ABSENT: distended, guarding, mass, organolmegaly, rebound, tenderness Neurological exam: PRESENT: alert, awake, oriented to person Psychiatric exam: PRESENT: anxious Results Laboratory Results: 09/25/17 05:20 09/25/17 05:20 09/25/17 09/25/17 05:20 05:20 WBC 57.0 H* RBC 2.99 L Hgb 9.3 L D Hct 27.4 L MCV 92 MCH 31.1 MCHC 34.0 RDW 15.8 H Plt Count 168 Seg Neutrophils % Not Reportable Lymphocytes % Not Reportable Monocytes % Not Reportable Eosinophils % Not Reportable Basophils % Not Reportable Absolute Neutrophils Not Reportable Absolute Lymphocytes Not Reportable Absolute Monocytes Not Reportable Absolute Eosinophils Not Reportable Absolute Basophils Not Reportable Sodium 142.7 Potassium 4.0 Chloride 107 Carbon Dioxide 28 Anion Gap 8 BUN 19 Creatinine 0.85 Est GFR ( Amer) > 60 Est GFR (Non-Af Amer) > 60 Glucose 115 H Calcium 8.1 L 09/24/17 09/24/17 09/24/17 01:50 01:50 07:35 Creatine Kinase 29 L 24 L CK-MB (CK-2) 0.57 Troponin I < 0.012 09/24/17 09/24/17 09/24/17 07:35 13:55 13:55 Creatine Kinase 24 L CK-MB (CK-2) 0.56 0.60 Troponin I < 0.012 < 0.012 Impressions: Chest X-Ray 09/23/17 22:35 IMPRESSION: No acute cardiopulmonary findings. Chest/Abdomen CTA 09/23/17 22:35 IMPRESSION: 1. Moderate mediastinal and upper abdominal lymphadenopathy. 2. No acute cardiopulmonary findings. No pulmonary embolus. Prior surgery. Abdomen X-Ray 09/24/17 00:00 IMPRESSION: No acute findings. Head CT 09/25/17 00:00 IMPRESSION: No acute or suspicious findings. Assessment & Plan - Diagnosis (1) Acute respiratory failure Qualifiers: Respiratory failure complication: hypoxia Qualified Code(s): J96.01 - Acute respiratory failure with hypoxia Is this a current diagnosis for this admission?: Yes Plan: Cont BIPAP support. Anxiolytics prn (2) Esophageal cancer Is this a current diagnosis for this admission?: Yes Plan: Dr. Christina has been consulted. Leukocytosis is from recent Neupogen (3) Anxiety Is this a current diagnosis for this admission?: Yes Plan: Cont Xanax prn. Patient becomes anxious which then drives his tachypnea sometimes up to 60/min then calms down (4) Leukemoid reaction Is this a current diagnosis for this admission?: Yes Plan: Secondary to Neupogen - Time Time Spent with patient: 15-24 minutes Medications reviewed and adjusted accordingly: Yes Anticipated discharge: Home Within: within 72 hours - Inpatient Certification Based on my medical assessment, after consideration of the patient's comorbidities, presenting symptoms, or acuity I expect that the services needed warrant INPATIENT care.: Yes Medical Necessity: Need for Nebulizer Therapy and Monitoring of Response, Risk of Complication if Not Cared For in Hospital
[2017-09-25] MEDS: LANSOPRAZOLE 30 MG TAB.RAP.DR PO SCH (21:17)
[2017-09-26] MEDS: PIPERACILLIN SODIUM/TAZOBACTAM 4.5 GM in NORMAL SALINE 100 ML IV SCH ×5 (00:16→23:16)
[2017-09-26] MEDS: IPRATROPIUM/ALBUTEROL 0.5-2.5 MG/3 ML AMPUL NEB SCH ×4 (02:00→20:16)
[2017-09-26] MEDS: HEPARIN SOD (PORCINE) 5,000 UNIT/ML 1 ML SYRINGE SUBCUT SCH ×3 (05:22→21:39)
[2017-09-26 07:25] LABS: HEMATOCRIT 28.6 % (37.9-51.0); HEMOGLOBIN 9.5 g/dL (13.5-17.0); MEAN CORPUSCULAR HEMOGLOBIN 30.9 pg (27.0-33.4); MEAN CORPUSCULAR HGB CONC 33.3 g/dL (32.0-36.0); MEAN CORPUSCULAR VOLUME 93 fl (80-97); PLATELET COUNT 143 10^3/uL (150-450); RED BLOOD COUNT 3.08 10^6/uL (4.35-5.55)
[2017-09-26 07:55] LABS: WHITE BLOOD COUNT 46.2 10^3/uL (4.0-10.5)
[2017-09-26 07:56] LABS: ABSOLUTE LYMPHOCYTES# (MANUAL) 1.8 10^3/uL (0.5-4.7); ABSOLUTE MONOCYTES # (MANUAL) 0.5 10^3/uL (0.1-1.4); ABSOLUTE NEUTROPHILS# (MANUAL) 43.9 10^3/uL (1.7-8.2); BASOPHILS % (MANUAL) 0 % (0-2); EOSINOPHILS % (MANUAL) 0 % (0-6); LYMPHOCYTES % (MANUAL) 4 % (13-45); MONOCYTES % (MANUAL) 1 % (3-13); SEGMENTED NEUTROPHILS % (MAN) 95 % (42-78); TOTAL CELLS COUNTED 100
[2017-09-26 07:57] LABS: ANISOCYTOSIS 1+; OVALOCYTES SLIGHT; PLATELET COMMENT DECREASED; POIKILOCYTOSIS SLIGHT; TEAR DROP CELLS SLIGHT; TOXIC GRANULATION SLIGHT
[2017-09-26] MEDS: ASPIRIN 81 MG TABLET, CHEWABLE PO SCH (09:13)
[2017-09-26] MEDS: VENLAFAXINE HCL 25 MG TABLET PO SCH (09:14)
[2017-09-26] MEDS: PREDNISONE 20 MG TABLET PO SCH ×2 (09:14→17:35)
[2017-09-26] MEDS: AZITHROMYCIN 500 MG in DEXTROSE 5%-WATER 250 ML IV SCH (09:14)
[2017-09-26] MEDS: FLUTICASONE NASAL SPRAY 50 MCG/SPRY 120 SPRAY/16 GM NASL SCH ×2 (09:14→21:40)
[2017-09-26] MEDS: DOCUSATE SODIUM 100 MG CAPSULE PO SCH ×2 (09:14→17:34)
[2017-09-26] MEDS: AMIODARONE HCL 200 MG TABLET PO SCH (09:14)
[2017-09-26] MEDS ORDERED: ONDANSETRON HCL INJ/PF 4 MG/2 ML SDV IV PRN (11:00)
--- NOTE | 2017-09-26 15:17 | PDOC PROGRESS REPORT ---
Subjective Progress Note for:: 09/26/17 Subjective:: AMERICA COOK is a 71 year old male with history of active lung and esophageal cancer with metastases on chemotherapy, COPD with chronic bronchitis and home oxygen dependence. Patient presents with 12 hours of shortness of breath and tachypnea. Denies anxiety, headache, rhinorrhea, sore throat or acid reflux. In the emergency room he is found to have no fever, leukocytosis of 52,000, respiratory rate of 30-40 and oxygen saturations at baseline of 99% on 2 L. CTA of the chest is negative for pulmonary emboli, BNP in normal range. He is referred to the hospitalist for admission. He denies previous episode. He is unaware of his chemotherapeutic regimen. Spoke with Dr. Christina. She did relay that patient received Neupogen after his chemo treatment hence his leukocytosis. He was initially diagnosed about 2 years ago and was treated with a carboplatin-based regimen but patient has had a recurrence and is currently receiving FOLFOX. She did also confirm that patient gets pretty anxious which leads to respiratory distress We will continue with NIPPV and other supportive management. Palliative care consult has also been ordered Reason For Visit: ACUTE BRONCHITIS,SOB,LUNG CA W METS Physical Exam Vital Signs: Temp Pulse Resp BP Pulse Ox 98.2 F 60 22 H 117/75 97 09/26/17 08:14 09/26/17 08:24 09/26/17 08:24 09/26/17 08:14 09/26/17 08:24 Intake & Output 09/25/17 09/26/17 09/27/17 06:59 06:59 06:59 Intake Total 3017 1340 Output Total 1625 1250 Balance 1392 90 Weight 78.1 kg 77.3 kg General appearance: PRESENT: no acute distress, well-developed, well-nourished Head exam: PRESENT: atraumatic, normocephalic Eye exam: PRESENT: conjunctiva pink, EOMI, PERRLA. ABSENT: scleral icterus Ear exam: PRESENT: normal external ear exam Mouth exam: PRESENT: moist, tongue midline Neck exam: ABSENT: carotid bruit, JVD, lymphadenopathy, thyromegaly Respiratory exam: PRESENT: decreased breath sounds, symmetrical, unlabored. ABSENT: rales, rhonchi, wheezes Cardiovascular exam: PRESENT: RRR. ABSENT: diastolic murmur, rubs, systolic murmur Pulses: PRESENT: normal carotid pulses, normal radial pulses Vascular exam: PRESENT: normal capillary refill GI/Abdominal exam: PRESENT: normal bowel sounds, soft. ABSENT: distended, guarding, mass, organolmegaly, rebound, tenderness Rectal exam: PRESENT: deferred Extremities exam: PRESENT: full ROM. ABSENT: calf tenderness, clubbing, pedal edema Neurological exam: PRESENT: alert, awake, oriented to person, oriented to place , oriented to time, oriented to situation, CN II-XII grossly intact. ABSENT: motor sensory deficit Psychiatric exam: PRESENT: appropriate affect, normal mood. ABSENT: homicidal ideation, suicidal ideation Skin exam: PRESENT: dry, intact, warm. ABSENT: cyanosis, rash Results Laboratory Results: 09/26/17 06:33 09/25/17 05:20 09/26/17 06:33 WBC 46.2 H* RBC 3.08 L Hgb 9.5 L Hct 28.6 L MCV 93 MCH 30.9 MCHC 33.3 RDW 16.0 H Plt Count 143 L Seg Neutrophils % Not Reportable Lymphocytes % Not Reportable Monocytes % Not Reportable Eosinophils % Not Reportable Basophils % Not Reportable Absolute Neutrophils Not Reportable Absolute Lymphocytes Not Reportable Absolute Monocytes Not Reportable Absolute Eosinophils Not Reportable Absolute Basophils Not Reportable 09/24/17 09/24/17 09/24/17 01:50 01:50 07:35 Creatine Kinase 29 L 24 L CK-MB (CK-2) 0.57 Troponin I < 0.012 09/24/17 09/24/17 09/24/17 07:35 13:55 13:55 Creatine Kinase 24 L CK-MB (CK-2) 0.56 0.60 Troponin I < 0.012 < 0.012 Impressions: Chest X-Ray 09/23/17 22:35 IMPRESSION: No acute cardiopulmonary findings. Chest/Abdomen CTA 09/23/17 22:35 IMPRESSION: 1. Moderate mediastinal and upper abdominal lymphadenopathy. 2. No acute cardiopulmonary findings. No pulmonary embolus. Prior surgery. Abdomen X-Ray 09/24/17 00:00 IMPRESSION: No acute findings. Head CT 09/25/17 00:00 IMPRESSION: No acute or suspicious findings. Assessment & Plan - Diagnosis (1) Acute respiratory failure Qualifiers: Respiratory failure complication: hypoxia Qualified Code(s): J96.01 - Acute respiratory failure with hypoxia Is this a current diagnosis for this admission?: Yes Plan: Patient is gradually improving. His oxygen requirements are back to baseline. He will start to increase his activity ambulate with nurses. He wears BiPAP at home at night as well (2) Esophageal cancer Qualifiers: Malignant neoplasm of esophagus location: unspecified location Qualified Code(s): C15.9 - Malignant neoplasm of esophagus, unspecified Is this a current diagnosis for this admission?: Yes Plan: Patient is presently receiving chemotherapy by Dr. Christina (3) Leukocytosis Qualifiers: Leukocytosis type: unspecified Qualified Code(s): D72.829 - Elevated white blood cell count, unspecified Is this a current diagnosis for this admission?: Yes Plan: He recently received Neupogen prior to his admission. Leukocytosis is resolving (4) Shortness of breath Is this a current diagnosis for this admission?: Yes Plan: As above in number 1 - Time Time Spent with patient: 25-34 minutes Total Critical Time (Minutes): 15 Medications reviewed and adjusted accordingly: Yes Anticipated discharge: Home Within: within 48 hours
[2017-09-26 15:33] LABS: PATH REVIEW PATHOLOGIST REVIEWED
--- NOTE | 2017-09-26 16:21 | Palliative Consultation Report ---
Consultation From:: BTEH BLUNT - HPI Chief Complaint: dyspnea HPI: Palliative care consult Appreciate pc consult request. I met with Mr. Roberts and his . Patient is admitted with acute dyspnea and weakness from home. reports that he has learned to make dulcimers and was working on one when he became very short of breath and anxious. Mr. Roberts has cancer in both esophagus and lung and has been following at [facility] and with Dr. Christina locally. He has been getting chemotherapy off and on for two years, apparently recently on Folfax. Mrs. Roberts said he got sick and very distressed over a period of hours at home, but he would not let her bring him to ER until that evening. He is improved per his , but still is very anxious and having rapid respirations and appears to be having air hunger. He is on xanax prn, but he is still very jittery and nervous in behavior. He was very concerned when I said I was with palliative care and finally relaxed some when I told him I was there to discuss his symptoms and medications that might help. He is full code, but with the anxiety level he had today at my visit, I will wait to discuss code status tomorrow. states patient has appointment in [facility] in 3 weeks to have repeat PET scan, She says he has discussed stopping his chemo but has not come to any decision. We talked about medications that might help his breathing and his anxiety. 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 She said he is restless at home which adds to his anxiety. When patient went to bathroom, discussed that he had not wanted radiation and probably would not want it now. He has had PEG tube for nine months last year and said he didnt want it again. She says they have four sons , one of which has a who also has cancer. The sons dont want the patient to "give up". We talked about the difference between giving up and choosing to not pursue chem for a while until he feels better and sees what the PET scan might show. Onset: Just prior to arrival Quality of Pain: No pain Severity: Severe - severe dyspnea on admission Associated Symptoms: Shortness of breath Past Medical History(Consults) - General Information Source: Patient, Relative, [facility] Records Home Medications: Albuterol Sulfate [Proair HFA] 2 inh IH QID 11/14/12 Aspirin 81 mg PO QAM 11/14/12 Amiodarone HCl [Cordarone 200 mg Tablet] 200 mg PO DAILY 03/07/17 Venlafaxine HCl [Effexor 25 mg Tablet] 25 mg PO BID 03/07/17 Fluticasone/Salmeterol [Advair 500-50 Diskus 14 Dose/Diskus] 1 inh IH Q12H 09/24 Omeprazole 40 mg PO BID 09/24/17 Ondansetron HCl [Zofran 8 mg Tablet] 8 mg PO Q8HP PRN 09/24/17 Pegfilgrastim [Neulasta Inj 6 Mg/0.6 Ml Disp.Syrin] 6 mg SUBCUT Q14D 09/24/17 Prochlorperazine Maleate [Compazine 10 mg Tablet] 10 mg PO Q6HP PRN 09/24/17 Tiotropium [place] [Spiriva Respimat] 2 puff IH QAM 09/24/17 Allergies/Adverse Reactions: bee venom protein (honey bee) Allergy (Verified 07/13/17 09:10) tetracycline [Tetracycline] Allergy (Verified 07/13/17 09:10) resp distress - Social History Lives with: Family Family History: COPD Parental Family History Reviewed: No Children Family History Reviewed: No Sibling(s) Family History Reviewed.: No Smoking Status: Former Smoker Frequency of Alcohol Use: None Hx Prescription Drug Abuse: No - Past Medical History Cardiac Medical History: Reports: Hx Heart Attack - 2016, Hx Hypercholesterolemia - meds x 8 years, Hx Hypertension Denies: Hx Atrial Fibrillation, Hx Congestive Heart Failure, Hx Coronary Artery Disease, Hx Peripheral Vascular Disease, Hx Pulmonary Embolism, Hx Heart Murmur Pulmonary Medical History: Reports: Hx Asthma, Hx Bronchitis - chronic, Hx COPD , Hx Pneumonia - hospitalized after 2nd episode 2010, Hx Sleep Apnea - CPAP Qhs , does not wear all night Denies: Hx Respiratory Failure, Hx Tuberculosis Neurological Medical History: Denies: Hx Cerebrovascular Accident, Hx Seizures Renal/ Medical History: Denies: Hx Benign Prostatic Hyperplasia, Hx End Stage Renal Disease, Hx Kidney Stones, Hx Peritoneal Dialysis Malignancy Medical History: Denies Hx Leukemia, Denies Hx Lung Cancer GI Medical History: Reports: Hx Gastroesophageal Reflux Disease - Nexium daily, Hx Hiatal Hernia. Denies: Hx Crohn's Disease, Hx Hepatitis, Hx Irritable Bowel , Hx Liver Failure, Hx Pancreatitis, Hx Ulcer Musculoskeltal Medical History: Reports Hx Arthritis, Denies Hx Fibromyalgia, Denies Hx Muscular Dystrophy Psychiatric Medical History: Denies: Hx Depression Traumatic Medical History: Reports: Hx Fractures - RT tibia 2002, no surgical intervention Infectious Medical History: Denies: Hx Hepatitis, Hx HIV Hematology: Denies: Anemia, Hemophilia, Sickle Cell Disease - Surgical History Past Surgical History: Reports: Hx Herniorrhaphy - [place] fundiplication? 1986. Denies: Hx Appendectomy, Hx Bowel Surgery, Hx Cholecystectomy, Hx Colostomy, Hx Coronary Artery Bypass Graft, Hx Gastric Bypass Surgery, Hx Open Heart Surgery, Hx Pacemaker, Hx Tonsillectomy Past Surgical Note: prior PEG tube for 9 months Review of systems Constitutional: Weakness Respiratory: Cough, Short of breath Musculoskeltal: Joint pain Ojective:Exam Vital Signs: Temp Pulse Resp BP Pulse Ox 98.2 F 69 23 H 117/79 100 09/26/17 11:30 09/26/17 14:30 09/26/17 14:30 09/26/17 11:30 09/26/17 11:30 Intake & Output 09/25/17 09/26/17 09/27/17 06:59 06:59 06:59 Intake Total 3017 1340 Output Total 1625 1250 Balance 1392 90 Weight 78.1 kg 77.3 kg - General General Appearance: Anxious In distress: Moderate - awoke from sleep quickly, very anxious, moving about in bed, dyspnea noted in spite of oxygen. Does not speak more than a few words at at time. - HEENT Head: Normocephalic Eyes: Normal Pupils: PERRLA Mucous membrane: Moist - Respiratory Respiratory Status: Labored Breath sounds: Rhonchi - Neurological Orientation: AAOx4 Speech: Normal Cranial nerves: Normal - Psychological Associated symptoms: Anxious - Very anxious to have me there talking with . Objective-Diagnostic Laboratory: 09/26/17 06:33 09/25/17 05:20 09/26/17 06:33 WBC 46.2 H* RBC 3.08 L Hgb 9.5 L Hct 28.6 L MCV 93 MCH 30.9 MCHC 33.3 RDW 16.0 H Plt Count 143 L Seg Neutrophils % Not Reportable Lymphocytes % Not Reportable Monocytes % Not Reportable Eosinophils % Not Reportable Basophils % Not Reportable Absolute Neutrophils Not Reportable Absolute Lymphocytes Not Reportable Absolute Monocytes Not Reportable Absolute Eosinophils Not Reportable Absolute Basophils Not Reportable 09/24/17 09/24/17 09/24/17 01:50 01:50 07:35 Creatine Kinase 29 L 24 L CK-MB (CK-2) 0.57 Troponin I < 0.012 09/24/17 09/24/17 09/24/17 07:35 13:55 13:55 Creatine Kinase 24 L CK-MB (CK-2) 0.56 0.60 Troponin I < 0.012 < 0.012 Plan and Recommendation Plan and Recommendation: Patient said he wanted to go to . followed me to [place] and talked about patients anxiety and exhaustion with disease, but said he didnt want to stop chemo as his sons want him to keep fighting. is also very tired and worried that chemo doesnt seem to be helping much. She is hopeful they will reach some decision after PET scan. I told her they could opt to rest from chemo until appointment at [facility] without giving up on it completely. Discussed medications which may be ordered to help patient breath easier, such as extended release morphine or scheduled Ativan or xanax. I told these meds may be offered and explained how they work to help with breahting even in absence of pain. This patient may also do well with use of Xopenex in nebs instead of albuterol since he is so nervous and anxious. I will visit again tomorrow and try to discuss advance directives if patient is receptive to the discussion. - Time Spent with Patient Time spent with patient: 40 to 60 Minutes Time: 55 min
[2017-09-26] MEDS: LANSOPRAZOLE 30 MG TAB.RAP.DR PO SCH (21:39)
[2017-09-27] MEDS: IPRATROPIUM/ALBUTEROL 0.5-2.5 MG/3 ML AMPUL NEB SCH ×4 (01:50→20:30)
[2017-09-27] MEDS: PIPERACILLIN SODIUM/TAZOBACTAM 4.5 GM in NORMAL SALINE 100 ML IV SCH (05:19)
[2017-09-27] MEDS: HEPARIN SOD (PORCINE) 5,000 UNIT/ML 1 ML SYRINGE SUBCUT SCH ×3 (05:19→21:36)
[2017-09-27 06:24] LABS: HEMATOCRIT 26.8 % (37.9-51.0); MEAN CORPUSCULAR HEMOGLOBIN 30.8 pg (27.0-33.4); MEAN CORPUSCULAR HGB CONC 33.7 g/dL (32.0-36.0); MEAN CORPUSCULAR VOLUME 92 fl (80-97); PLATELET COUNT 104 10^3/uL (150-450); RED BLOOD COUNT 2.93 10^6/uL (4.35-5.55); WHITE BLOOD COUNT 17.5 10^3/uL (4.0-10.5)
[2017-09-27 06:51] LABS: ABSOLUTE LYMPHOCYTES# (MANUAL) 0.4 10^3/uL (0.5-4.7); ABSOLUTE MONOCYTES # (MANUAL) 0.4 10^3/uL (0.1-1.4); ABSOLUTE NEUTROPHILS# (MANUAL) 16.8 10^3/uL (1.7-8.2); BASOPHILS % (MANUAL) 0 % (0-2); EOSINOPHILS % (MANUAL) 0 % (0-6); LYMPHOCYTES % (MANUAL) 2 % (13-45); MONOCYTES % (MANUAL) 2 % (3-13); SEGMENTED NEUTROPHILS % (MAN) 96 % (42-78); TOTAL CELLS COUNTED 100
[2017-09-27 06:52] LABS: ANISOCYTOSIS 1+; PLATELET COMMENT DECREASED; TOXIC GRANULATION 1+
[2017-09-27] MEDS: FLUTICASONE NASAL SPRAY 50 MCG/SPRY 120 SPRAY/16 GM NASL SCH ×2 (09:16→21:36)
[2017-09-27] MEDS: ASPIRIN 81 MG TABLET, CHEWABLE PO SCH (09:16)
[2017-09-27] MEDS: VENLAFAXINE HCL 25 MG TABLET PO SCH (09:17)
[2017-09-27] MEDS: PREDNISONE 20 MG TABLET PO SCH (09:17)
[2017-09-27] MEDS: DOCUSATE SODIUM 100 MG CAPSULE PO SCH ×2 (09:17→18:09)
[2017-09-27] MEDS: AMIODARONE HCL 200 MG TABLET PO SCH (09:17)
[2017-09-27] MEDS ORDERED: LEVALBUTEROL HCL NEB 0.63 MG/3 ML AMPUL NEB PRN (11:46)
[2017-09-27] MEDS ORDERED: MORPHINE SULFATE IR 15 MG TABLET PO ONE ×2 (13:00→16:30)
--- NOTE | 2017-09-27 17:50 | PDOC PROGRESS REPORT ---
Subjective Progress Note for:: 09/27/17 Subjective:: Patient is seen resting in bed. He appears mildly tachypneic even at rest. He denies any chest pain, shortness of breath or dyspnea at the present time. He denies any nausea, vomiting or abdominal pain. He denies any fevers or chills overnight. He states his breathing overall feels improved. He thinks anxiety has a lot to do with his tachypnea. Remaining review of systems are negative. Reason For Visit: ACUTE BRONCHITIS,SOB,LUNG CA W METS Physical Exam Vital Signs: Temp Pulse Resp BP Pulse Ox 98.5 F 79 47 H 125/93 H 96 09/27/17 15:38 09/27/17 15:38 09/27/17 15:38 09/27/17 15:38 09/27/17 15:38 Intake & Output 09/26/17 09/27/17 09/28/17 06:59 06:59 06:59 Intake Total 1340 2067 Output Total 1250 940 Balance 90 1127 Weight 77.3 kg 77.1 kg General appearance: PRESENT: no acute distress, well-developed, well-nourished Head exam: PRESENT: atraumatic, normocephalic Eye exam: PRESENT: conjunctiva pink, EOMI, PERRLA. ABSENT: scleral icterus Ear exam: PRESENT: normal external ear exam Mouth exam: PRESENT: moist, tongue midline Teeth exam: PRESENT: poor dentation Neck exam: ABSENT: carotid bruit, JVD, lymphadenopathy, thyromegaly Respiratory exam: PRESENT: decreased breath sounds, symmetrical, unlabored Cardiovascular exam: PRESENT: RRR. ABSENT: diastolic murmur, rubs, systolic murmur Pulses: PRESENT: normal dorsalis pedis pul Vascular exam: PRESENT: normal capillary refill GI/Abdominal exam: PRESENT: normal bowel sounds, soft. ABSENT: distended, guarding, mass, organolmegaly, rebound, tenderness Rectal exam: PRESENT: deferred Extremities exam: PRESENT: full ROM. ABSENT: calf tenderness, clubbing, pedal edema Neurological exam: PRESENT: alert, awake, oriented to person, oriented to place , oriented to time, oriented to situation, CN II-XII grossly intact. ABSENT: motor sensory deficit Psychiatric exam: PRESENT: appropriate affect, normal mood. ABSENT: homicidal ideation, suicidal ideation Skin exam: PRESENT: dry, intact, warm. ABSENT: cyanosis, rash Results Laboratory Results: 09/27/17 05:50 09/25/17 05:20 09/27/17 05:50 WBC 17.5 H RBC 2.93 L Hgb 9.0 L Hct 26.8 L MCV 92 MCH 30.8 MCHC 33.7 RDW 16.0 H Plt Count 104 L Seg Neutrophils % Not Reportable Lymphocytes % Not Reportable Monocytes % Not Reportable Eosinophils % Not Reportable Basophils % Not Reportable Absolute Neutrophils Not Reportable Absolute Lymphocytes Not Reportable Absolute Monocytes Not Reportable Absolute Eosinophils Not Reportable Absolute Basophils Not Reportable 09/24/17 09/24/17 09/24/17 01:50 01:50 07:35 Creatine Kinase 29 L 24 L CK-MB (CK-2) 0.57 Troponin I < 0.012 09/24/17 09/24/17 09/24/17 07:35 13:55 13:55 Creatine Kinase 24 L CK-MB (CK-2) 0.56 0.60 Troponin I < 0.012 < 0.012 Impressions: Chest X-Ray 09/23/17 22:35 IMPRESSION: No acute cardiopulmonary findings. Chest/Abdomen CTA 09/23/17 22:35 IMPRESSION: 1. Moderate mediastinal and upper abdominal lymphadenopathy. 2. No acute cardiopulmonary findings. No pulmonary embolus. Prior surgery. Abdomen X-Ray 09/24/17 00:00 IMPRESSION: No acute findings. Head CT 09/25/17 00:00 IMPRESSION: No acute or suspicious findings. Assessment & Plan - Diagnosis (1) Acute respiratory failure Qualifiers: Respiratory failure complication: hypoxia Qualified Code(s): J96.01 - Acute respiratory failure with hypoxia Is this a current diagnosis for this admission?: Yes Plan: Patient is gradually improving. His oxygen requirements are back to baseline. He will start to increase his activity ambulate with nurses. He wears BiPAP at home at night as well (2) Esophageal cancer Qualifiers: Malignant neoplasm of esophagus location: unspecified location Qualified Code(s): C15.9 - Malignant neoplasm of esophagus, unspecified Is this a current diagnosis for this admission?: Yes Plan: Patient is presently receiving chemotherapy by Dr. Christina. Palliative care consult is appreciated (3) Leukocytosis Qualifiers: Leukocytosis type: unspecified Qualified Code(s): D72.829 - Elevated white blood cell count, unspecified Is this a current diagnosis for this admission?: Yes Plan: He recently received Neupogen prior to his admission. Leukocytosis is resolving (4) Shortness of breath Is this a current diagnosis for this admission?: Yes Plan: As above in number 1. He is agreeable to long acting morphine per Palliative care's suggestion. - Time Time Spent with patient: 25-34 minutes Total Critical Time (Minutes): 15 Medications reviewed and adjusted accordingly: Yes Anticipated discharge: Home Within: within 48 hours
[2017-09-27] MEDS: LANSOPRAZOLE 30 MG TAB.RAP.DR PO SCH (21:34)
[2017-09-27] MEDS: MORPHINE SULFATE IR 15 MG TABLET PO SCH (21:34)
--- NOTE | 2017-09-27 23:39 | Progress Note ---
Provider Note Provider Note: Palliative Care Follow Up visit 09/27/17 12:15 PM Follow up visit with Mr Roberts and his . Germaniaetsusan looks much better than yesterday, breathing with less dyspnea and able to eat lunch with minimal increase shortness breath. He is not as anxious or restless today. His breathing appears to be easier and less constricted. and Mrs. Roberts discussed end of life issues with me and we looked at the MOST form. Mr. Roberts said he did not want to be put on a ventilator or be intubated because " that mask thing is bad enough". However, he is not quite ready to commit to DNR. We discussed CPR and intubation as well as PEG tube and in ICU vs comfort care. He was very attentive to this conversation and said he would discuss the MOST form with his . His said a MOST form would be helpful for their sons to see what their father wanted in case of a medical situation when he could not speak to them. Patient was visibly not comfortable with this conversation, but was listening and participating. After discussion about these issues and discussion of his life at present is which already limited by his disease, I felt it best to give him time to think about these things. 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 In addition, his talked to me more about using morphine to help him relax and breathe better. She is interested in asking him to try the medication while in the hospital. Will follow tomorrow to continue discussion.
[2017-09-28] MEDS: IPRATROPIUM/ALBUTEROL 0.5-2.5 MG/3 ML AMPUL NEB SCH ×3 (01:52→13:45)
[2017-09-28] MEDS: HEPARIN SOD (PORCINE) 5,000 UNIT/ML 1 ML SYRINGE SUBCUT SCH ×2 (05:14→14:31)
[2017-09-28] MEDS: ASPIRIN 81 MG TABLET, CHEWABLE PO SCH (07:46)
[2017-09-28] MEDS ORDERED: PREDNISONE 20 MG TABLET PO SCH (10:00)
[2017-09-28] MEDS: DOCUSATE SODIUM 100 MG CAPSULE PO SCH (10:11)
[2017-09-28] MEDS: MORPHINE SULFATE IR 15 MG TABLET PO SCH (10:11)
[2017-09-28] MEDS: VENLAFAXINE HCL 25 MG TABLET PO SCH (10:11)
[2017-09-28] MEDS: AMIODARONE HCL 200 MG TABLET PO SCH (10:11)
[2017-09-28] MEDS: FLUTICASONE NASAL SPRAY 50 MCG/SPRY 120 SPRAY/16 GM NASL SCH (10:11)
--- NOTE | 2017-09-28 14:50 | PDOC PROGRESS REPORT ---
Subjective Progress Note for:: 09/28/17 Subjective:: 71 yr old male with a h/o active lung and esophageal cancer with mets on chemotherapy Hypertension Hyperlipidemia GERD Asthma COPD on home O2 LETTY on CPAP CAD He presented on 09/24/17 with dyspnea and was started on empiric antibiotics. Reason For Visit: ACUTE BRONCHITIS,SOB,LUNG CA W METS Physical Exam Vital Signs: Temp Pulse Resp BP Pulse Ox 97.8 F 60 30 H 97/61 L 98 09/28/17 07:46 09/28/17 08:02 09/28/17 08:02 09/28/17 07:46 09/28/17 08:02 Intake & Output 09/27/17 09/28/17 09/29/17 06:59 06:59 06:59 Intake Total 2067 130 Output Total 940 Balance 1127 130 Weight 77.1 kg 73.8 kg General appearance: PRESENT: no acute distress Head exam: PRESENT: normocephalic Mouth exam: PRESENT: moist Respiratory exam: PRESENT: rhonchi, symmetrical Cardiovascular exam: PRESENT: RRR Neurological exam: PRESENT: alert, awake Results Laboratory Results: 09/27/17 05:50 09/25/17 05:20 09/24/17 09/24/17 09/24/17 01:50 01:50 07:35 Creatine Kinase 29 L 24 L CK-MB (CK-2) 0.57 Troponin I < 0.012 09/24/17 09/24/17 09/24/17 07:35 13:55 13:55 Creatine Kinase 24 L CK-MB (CK-2) 0.56 0.60 Troponin I < 0.012 < 0.012 Impressions: Chest X-Ray 09/23/17 22:35 IMPRESSION: No acute cardiopulmonary findings. Chest/Abdomen CTA 09/23/17 22:35 IMPRESSION: 1. Moderate mediastinal and upper abdominal lymphadenopathy. 2. No acute cardiopulmonary findings. No pulmonary embolus. Prior surgery. Abdomen X-Ray 09/24/17 00:00 IMPRESSION: No acute findings. Head CT 09/25/17 00:00 IMPRESSION: No acute or suspicious findings. Assessment & Plan - Diagnosis (1) Acute respiratory failure Qualifiers: Respiratory failure complication: hypoxia Qualified Code(s): J96.01 - Acute respiratory failure with hypoxia Is this a current diagnosis for this admission?: Yes Plan: Secondary to COPD and metastatic cancer to lungs (2) Esophageal cancer Qualifiers: Malignant neoplasm of esophagus location: unspecified location Qualified Code(s): C15.9 - Malignant neoplasm of esophagus, unspecified Is this a current diagnosis for this admission?: Yes Plan: F/u Oncology as outpatient (3) Leukemoid reaction Is this a current diagnosis for this admission?: Yes Plan: Due to Neupogen - Time Time Spent with patient: 25-34 minutes
--- NOTE | 2017-09-28 14:57 | PDOC DISCHARGE SUMMARY ---
General - Admit/Disc Date/PCP Admission Date/Primary Care Provider: 09/24/17 01:32 NING CRUZ MD Oncology: Dr. Rodriguez Discharge Date: 09/28/17 - Discharge Diagnosis (1) Acute respiratory failure Is this a current diagnosis for this admission?: Yes Summary: Improved. (2) Esophageal cancer Is this a current diagnosis for this admission?: Yes (3) Leukemoid reaction Is this a current diagnosis for this admission?: Yes - Additional Information Resuscitation Status: Full Code Prescriptions: Morphine Sulfate [Morphine Ir 15 mg Tablet] 15 mg PO Q12 7 Days #14 tablet Home Medications: Albuterol Sulfate [Proair HFA] 2 inh IH QID 11/14/12 Aspirin 81 mg PO QAM 11/14/12 Amiodarone HCl [Cordarone 200 mg Tablet] 200 mg PO DAILY 03/07/17 Venlafaxine HCl [Effexor 25 mg Tablet] 25 mg PO BID 03/07/17 Fluticasone/Salmeterol [Advair 500-50 Diskus 14 Dose/Diskus] 1 inh IH Q12H 09/24 Omeprazole 40 mg PO BID 09/24/17 Ondansetron HCl [Zofran 8 mg Tablet] 8 mg PO Q8HP PRN 09/24/17 Pegfilgrastim [Neulasta Inj 6 mg/0.6 ml Disp.syrin] 6 mg SUBCUT Q14D 09/24/17 Prochlorperazine Maleate [Compazine 10 mg Tablet] 10 mg PO Q6HP PRN 09/24/17 Tiotropium [place] [Spiriva Respimat] 2 puff IH QAM 09/24/17 Docusate Sodium [Colace 100 mg Capsule] 100 mg PO BID capsule 09/28/17 Lansoprazole [Prevacid 30 mg Odt Tablet] 30 mg PO QHS tab.rap. 09/28/17 Morphine Sulfate [Morphine Ir 15 mg Tablet] 15 mg PO Q12 7 Days #14 tablet 09/28 History of Present Illness History of Present Illness: 71 yr old male with a h/o active lung and esophageal cancer with mets on chemotherapy Hypertension Hyperlipidemia GERD Asthma COPD on home O2 LETTY on CPAP CAD He presented on 09/24/17 with dyspnea and was started on empiric antibiotics. Pneumonia was ruled out. A prescription for Morphine SR 15mg PO Q12h was given- 14 tablets Leukocytosis was determined to be secondary to Leukemoid reaction. Hospital Course Hospital Course: He is to f/u with Oncology next week as an outpatient Physical Exam Vital Signs: Temp Pulse Resp BP Pulse Ox 98.0 F 73 39 H 104/69 98 09/28/17 11:36 09/28/17 13:45 09/28/17 13:45 09/28/17 11:36 09/28/17 13:45 Intake & Output 09/27/17 09/28/17 09/29/17 06:59 06:59 06:59 Intake Total 2067 130 Output Total 940 Balance 1127 130 Weight 77.1 kg 73.8 kg General appearance: PRESENT: no acute distress Respiratory exam: PRESENT: rhonchi, symmetrical Results Laboratory Results: 09/27/17 05:50 09/25/17 05:20 09/24/17 09/24/17 09/24/17 01:50 01:50 07:35 Creatine Kinase 29 L 24 L CK-MB (CK-2) 0.57 Troponin I < 0.012 09/24/17 09/24/17 09/24/17 07:35 13:55 13:55 Creatine Kinase 24 L CK-MB (CK-2) 0.56 0.60 Troponin I < 0.012 < 0.012 Impressions: Chest X-Ray 09/23/17 22:35 IMPRESSION: No acute cardiopulmonary findings. Chest/Abdomen CTA 09/23/17 22:35 IMPRESSION: 1. Moderate mediastinal and upper abdominal lymphadenopathy. 2. No acute cardiopulmonary findings. No pulmonary embolus. Prior surgery. Abdomen X-Ray 09/24/17 00:00 IMPRESSION: No acute findings. Head CT 09/25/17 00:00 IMPRESSION: No acute or suspicious findings. Qualifiers - * PATIENT BEING DISCHARGED WITH ANY OF THE FOLLOWING DIAGNOSIS: No Plan Time Spent: Greater than 30 Minutes
[2017-09-28 16:03] VITALS: BP 103/70
--- NOTE | 2017-09-28 22:33 | Progress Note ---
Provider Note Provider Note: Palliative Care Follow up visit. 09/28/17 12:55 PM Follow up visit with Mr and Mrs Roberts. Mr Roberts states he is feling better but still did not get to sleep last night because someone woke him up every two hours. He did not use Bipap last night. He says he is breathing much easier today and feels ready to go home. Neither the patitobi or his wanted to further discuss his MOST form or advance directives. I did not push the issue with them. Patient was started on MS ER 15mg last night and had second dose this AM. He has not reported any side effects or drowsiness. He has reported breathing more easily and seems less anxious. I spoke with his about the use of the extended release morphine and also about having a bottle of Morphine concentrate to use when dayan gets increasingly dyspneic at home to prevent the severe reaction he has with dyspnea and anxiety. She said she would talk to Dr. Christina about it. No other issues to address. I offered home PC visits if requested by one of his doctors. Support offered for who is very tired and realistic about prognosis and future months to come. Appreciate opportunity to participate in care.
== END 2017-09-28 16:30 | disposition home or self-care (01) | DRG 189 ==
LOC: ER 21:49 → EH 09-24 01:32 → 4S 09-24 02:54
PROVIDERS: ADMIT Internal Medicine; ATTEND Internal Medicine
DX: J96.01 Acute respiratory failure with hypoxia (principal); C15.9 Malignant neoplasm of esophagus, unspecified; C34.90 Malignant neoplasm of unspecified part of unspecified bronchus or lung; J44.9 Chronic obstructive pulmonary disease, unspecified; D72.823 Leukemoid reaction; T45.8X5A Adverse effect of other primarily systemic and hematological agents, initial encounter; I10 Essential (primary) hypertension; E78.00 Pure hypercholesterolemia, unspecified; K21.9 Gastro-esophageal reflux disease without esophagitis; K44.9 Diaphragmatic hernia without obstruction or gangrene; M79.7 Fibromyalgia; F41.9 Anxiety disorder, unspecified; I25.2 Old myocardial infarction; Z99.81 Dependence on supplemental oxygen
CPT/HCPCS: 36415; 70460; 71045; 71275; 74019; 80048; 82550; 82553; 82803; 83735; 83880; 84443; 84484; 85025; 85652; 87040; 93005; 93010; 94640; 94660; 96365; 96375; 99291; J0456; J1644; J2060; J2405; J2543; J2930; J3490; J7030; J7060; J7512; J7620